=== PATIENT | male | born 1990 ===

== ENCOUNTER 2022-12-10 22:32 | Emergency (ER) | payer OTHER, SELFPAY ==
[2022-12-10] VITALS (14 sets, daily range): BP systolic 123–135; BP diastolic 76–86; PULSE 59–79; RESP 10–27; TEMP 36.6; O2SAT 97–98
--- NOTE | 2022-12-10 22:15 | RT.EKG_ITS ---
APPROVED REPORT Exam: Resting ECG Reason for Exam: chest pain Patient Location: E HR:57 bpm ECG Measurements Heart Rate 57 AXIS WA 152 P 46 QRSd 83 QRS 96 QT 367 T 34 QTc 362 Conclusion Sinus bradycardia...rate< 60 Multiple ventricular premature complexes...V complexes w/ short R-R intervls Physician: no stemi, minimal elevation in AVF, no depressions.
--- NOTE | 2022-12-10 23:04 | ED.GENADUL_ITS ---
Discharge Plan Discharge Details Chief Complaint: Chest Pain ED Provider: Dallas Marcial Home Meds and New Rx's Prescriptions: No Action sertraline [Zoloft] 50 mg Tablet 50 mg PO DAILY olanzapine 10 mg Tablet 10 mg PO DAILY Medical Decision Making Patient presenting to the emergency department via EMS from the correctional facility for potential reaction to unknown substance. Around 10 AM this morning patient took what he thought was Subutex/ Bup that another inmate had given him. He states he has taken this before in the past with no reaction. Then approximately 1 hour or so prior to arrival patient states he was just laying down to go to sleep and as he was just starting to fall asleep he started feeling abnormal, blurred vision, he sat up and started having some increased heart rate, chest pain, shortness of breath with then resulted in some facial tingling and muscle spasm of the left side of the face that was witnessed. He also was stating some agitation delusions and paranoia that people from his past were trying to harm him. 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 He was started on o lanzapine and Zoloft. Patient stated that he did deep breathing while in the ambulance and now has no symptoms. Physical exam is unremarkable for any acute finding. Patient is alert and oriented x3, calm cooperative. Differential diagnosis to include anxiety attack, less likely but still considered is cardiac event due to ingestion of unknown substance, electrolyte or other serum abnormalities secondary to ingestion of substance. Symptoms along with physical exam are not consistent with CVA, seizure. We will plan on checking labs and EKG along with urine and UDS. At this time given patient stating almost full resolution of symptoms I do not feel that any interventions are needed pending results. Please see physician interpretation for full interpretation of EKG but upon my review patient has sinus rhythm, is bradycardic slightly with PVCs. did show slight ST change but does not meet acute criteria for STEMI. We will continue to monitor. Reviewed patient's labs and CBC is unremarkable nondiagnostic, CMP does show slight elevation of glucose of 121 which is nonconcerning, AST of 143 and ALT of 567. Did asked patient if he had any hepatitis history which she stated that he currently had hepatitis C but has not undergone treatment for it yet due to needing to be in custody for short amount of time but was going to be getting treatment for. Patient did have magnesium of 1.6 which we will orally replete. Otherwise initial troponin is negative and nondetectable. Urinalysis is unremarkable and UDS is negative. Given unknown substance and report of chest pain will repeat troponin. With patient reassessment he did state continued improvement of symptoms. I do feel this is reassuring and feel that high likelihood of patient having discharge disposition. Lab Data Lab results reviewed: Yes I reviewed the patient's lab results. HPI General Mode of arrival: EMS . Date/Time Provider Initiated Documentation: 12/10/22 22:32 . Limitations to Documentation: no limitations . Information obtained by: patient and RN notes reviewed . History of Present Illness 31 year old M presents to the emergency department with the chief complaint of Chest pain, inhalation of unknown substance, described as moderate, and is localized to the chest. Patient started experiencing this hour(s) (12) and it has been now resolved. No relieving factors improve symptom(s), Patient notes no other symptoms.. Patient did receive the following treatments prior to arrival, none Related Data Home Medications Medication Instructions Recorded Confirmed olanzapine 10 mg tablet 10 mg PO DAILY 12/10/22 12/10/22 sertraline 50 mg tablet (Zoloft) 50 mg PO DAILY 12/10/22 12/10/22 Allergies Allergy/AdvReac Type Severity Reaction Status Date / Time No Known Allergies Allergy Unverified 12/10/22 23:44 General Stated Complaint: Chest Pain JAMES: 3 Review of Systems Constitutional Constitutional: Denies chills, Denies fever(s) and Denies headache(s) Eyes Eyes: Reports blurry vision ENT Ears, Nose, Mouth, and Throat: Denies headache(s), Denies neck pain and Denies sore throat Cardiovascular Cardiovascular: Reports as per HPI, Reports chest pain, Denies syncope, Denies rapid heart rate, Denies palpitations and Reports dyspnea Respiratory Respiratory: Denies cough and Reports dyspnea Gastrointestinal Gastrointestinal: Denies abdominal pain Musculoskeletal Musculoskeletal: Denies back pain, Reports muscle cramps, Denies neck pain, Denies numbness and Reports tingling (Face during episode) Integumentary/Breasts Skin/Breast: Denies rash and Denies wounds Neurologic Neurologic: Denies syncope, Denies headache(s), Denies numbness, Denies convulsions and Reports tingling (Face during episode) Psychiatric Psychiatric: Reports paranoia Endocrine Endocrine: Denies palpitations PFSH Medical History (Updated 12/10/22 @ 23:52 by Elvia Salguero RN) Hepatitis C Social History Smoking risk assessment performed?: No Do you feel safe at home: No (senior living) Do you feel safe in your relationship?: No Exam Const General: cooperative, healthy appearing, no acute distress and well groomed Orientation: alert, awake and oriented x3 HENMT Head: normal to inspection Ears: hearing grossly normal bilaterally and TM's normal bilaterally Mouth: oral mucosae normal and moist mucous membranes Throat: posterior oropharynx normal Eyes Visual Brooke: normal visual brooke by confrontation Alignment and Position: alignment normal Periorbital: periorbital findings normal Eyelids: eyelids normal Sclera: sclerae normal Cornea: corneas normal Pupils: PERRL EOM: EOM intact bilaterally Neck Neck: normal visual inspection, full ROM, no lymphadenopathy and no meningeal signs Resp Effort & Inspection: normal respiratory effort and able to speak in complete sentences Auscultation: clear to auscultation bilaterally Cardio Rate: regular rate Rhythm: regular rhythm Heart Sounds: S1 normal and S2 normal Neuro General: patient alert, patient awake, patient oriented x3, gait normal, tone normal, moves all extremities, CN's II-XI intact bilaterally and not confused Cognition: normal cognition Speech: speech normal Motor: muscle tone normal throughout, strength 5/5 throughout, no pronator drift, no movement abnormalities noted and no fasciculations Sensory Exam: no sensory deficits noted Coordination: [id number] test normal and Does not sway with eyes open Course Vital Signs Vital signs: Vital Signs Temperature 36.6 C 12/10/22 22:37 Pulse 71 12/10/22 22:37 Respiratory Rate 21 12/10/22 22:37 Blood Pressure 123/84 12/10/22 22:37 Pulse Oximetry 98 12/10/22 22:37 Temperature 36.6 C 12/10/22 22:37 Temperature Source Tympanic 12/10/22 22:37 Pulse 71 12/10/22 22:37 Respiratory Rate 21 12/10/22 22:37 Respiratory Effort Normal 12/10/22 22:46 Respiratory Depth Normal 12/10/22 22:46 Respiratory Pattern Normal 12/10/22 22:46 Blood Pressure 123/84 12/10/22 22:37 Blood Pressure Position Supine 12/10/22 22:37 Pulse Oximetry 98 12/10/22 22:37 Oxygen Delivery Method Room Air 12/10/22 22:37 Oxygen Flow Rate 0 12/10/22 22:37 Pain Level 0 12/10/22 22:46 Sign Out Sign Out Data: Sign Out Comment: Patient pending serial troponin and reassessment with chief working diagnosis of anxiety reaction secondary to ingestion of unknown drug. At time of signout patient has no chest pain and is overall improving in symptoms. Last updated by Dallas Marcial NP at 12/10/22 23:53
[2022-12-10 23:10] LABS: Abs Immature Grans 0.04 10^3/uL (0.0-0.06); Absolute Basophil Count 0.03 10^3/uL (0.0-0.2); Absolute Eosinophil Count 0.12 10^3/uL (0.0-0.7); Absolute Lymphocyte Count 2.79 10^3/uL (1.2-3.4); Absolute Monocyte Count 0.54 10^3/uL (0.1-0.8); Absolute Neutrophil Count 4.44 10^3/uL (1.2-6.7); Basophils % 0.4; Eosinophils % 1.5; HCT 44.8 % (40.0-50.0); Immature Grans % 0.5; Lymphocytes % 35.1; MCH 29.4 pg (27.0-33.0); MCHC 33.5 % (32.0-36.0); MCV 88 fL (80-95); MPV 10.1 fL (8.0-11.0); Monocytes % 6.8; Neutrophils % 55.7; Platelet Count 159 10^3/uL (130-400); RBC 5.11 10^6/uL (4.36-5.78); RDW 13.5 % (11.8-14.1); RDW-SD 43.6 fL; WBC 7.96 10^3/uL (4.4-10.8)
[2022-12-10 23:12] LABS: Bilirubin Negative (Negative); Blood Negative (Negative); Clarity Clear (Clear); Glucose Negative (Negative); Ketones Negative (Negative); Leukocyte Esterase Negative (Negative); Nitrite Negative (Negative); Specific Gravity 1.015 (1.005-1.025); Urobilinogen 0.2 mg/dL (Up to 0.2)
[2022-12-10 23:26] LABS: ALT 567 U/L (16-63); AST 143 U/L (15-37); Albumin 4.1 g/dL (3.4-5.0); Alkaline Phosphatase 89 U/L (46-116); Anion Gap 7.8 mmol/L (3-11); BUN 8 mg/dL (7-18); Bilirubin, Total 0.4 mg/dL (0.2-1.0); CO2 29.2 mmol/L (21.0-32.0); Calcium 9.2 mg/dL (8.5-10.1); Chloride 101 mmol/L (98-107); Estimated GFR 104.48 (mL/min/1.73m2); Glucose 121 mg/dL (74-106); Magnesium 1.6 mg/dL (1.8-2.4); Potassium 3.7 mmol/L (3.5-5.1); Sodium 138 mmol/L (136-145); Total Protein 7.5 g/dL (6.4-8.2); Troponin I < 50 ng/L (<or=60)
[2022-12-10 23:35] LABS: *AMPHETAMINES SCREEN URINE Negative (Negative); *BARBITURATES SCREEN URINE Negative (Negative); *BENZODIAZEPINES SCREEN URINE Negative (Negative); Cannabinoids THC Negative (Negative); Cocaine Screen,Urine Negative (Negative); METHADONE URINE SCREEN Negative (Negative); OPIATES URINE SCREEN Negative (Negative)
[2022-12-10 23:38] LABS: Tricyclic Antidepressants Negative (Negative)
[2022-12-10] MEDS: Magnesium Oxide 400 MG TAB PO (23:57)
[2022-12-11] VITALS (23 sets, daily range): BP systolic 106–124; BP diastolic 61–71; PULSE 52–73; RESP 8–19
--- NOTE | 2022-12-11 01:45 | RT.EKG_ITS ---
APPROVED REPORT Exam: Resting ECG Reason for Exam: chest pain Patient Location: E HR:60 bpm ECG Measurements Heart Rate 60 AXIS MN 156 P 49 QRSd 94 QRS 98 QT 396 T 42 QTc 400 Conclusion Sinus rhythm...normal P axis, V-rate 60- 99 Multiple ventricular premature complexes...V complexes w/ short R-R intervls Aberrant complex...small R-R variation, aberrant QRS Physician: no stemi
[2022-12-11 01:47] LABS: Troponin I < 50 ng/L (<or=60)
--- NOTE | 2022-12-11 02:05 | W.EDPROG ---
Date of service: 12/11/22 Time of Service: 02:05 Medical Decision Making Case was signed out to me by my colleague Dallas Marcial. Please refer to his HPI, physical exam, assessment and plan. At time of signout we are awaiting repeat troponin and repeat EKG. Repeat troponin and repeat EKG have both returned unremarkable. No evidence of STEMI. EKG stable. Repeat troponin normal. Laboratory work-up is otherwise stable. Transaminases are elevated but the patient does have history of hepatitis C which she is awaiting treatment at assisted. Patient otherwise appears clinically well. Vital signs notably stable. Dallas Marcial felt that symptoms may have been mood and anxiety related, and at this time patient's symptoms appear clinically inconsistent with ACS. Patient stable for discharge. Discussed red flags for which to return. I have extensively reviewed the treatment plan and discharge instructions with the patient. I have addressed all patient concerns at this time. The patient was made aware of what symptoms to monitor for that would warrant a return to the emergency department. Discussed the plan with the patient, they demonstrate verbal understanding and agreement with our assessment and plan at this time. The documentation in this chart was dictated using [employer] dictation software. Please excuse any dictation errors. Sign Out Sign Out Data: Sign Out Comment: Patient pending serial troponin and reassessment with chief working diagnosis of anxiety reaction secondary to ingestion of unknown drug. At time of signout patient has no chest pain and is overall improving in symptoms. Last updated by Dallas Marcial NP at 12/10/22 23:53 Discharge Plan Disposition Patient Disposition: Home Condition: Good Discharge Details Chief Complaint: Chest Pain Clinical Impression: Accidental drug ingestion Primary Care Provider: Unknown,Unknown ED Provider: Ralf Richardson Home Meds and New Rx's Prescriptions: No Action sertraline [Zoloft] 50 mg Tablet 50 mg PO DAILY olanzapine 10 mg Tablet 10 mg PO DAILY Discharge Instructions Additional Instructions: At this time your work-up is stable. There is no evidence of heart attack, electrolyte abnormality requiring further correction, or other significant abnormality. Please follow-up closely with your medical practitioner at the assisted for management of your hepatitis. Please avoid any unprescribed substances. If you notice any worsening of your symptoms, or any new symptoms such as vomiting, diarrhea, fever, chills, shortness of breath, chest pain, numbness, weakness, or fainting , please return immediately to the emergency department for reevaluation. Please follow up with your primary care provider as soon as possible for reassessment and reevaluation. As always, it was a pleasure participating in your medical care today.
== END 2022-12-11 02:23 | disposition home or self-care (01) ==
PROVIDERS: Nurse Practitioner Family; Emergency Provider Student in an Organized Health Care Education/Training Program
DX: T50.901A Poisoning by unspecified drugs, medicaments and biological substances, accidental (unintentional), initial encounter (principal); R07.9 Chest pain, unspecified; R06.02 Shortness of breath; R25.2 Cramp and spasm; R20.2 Paresthesia of skin
CPT/HCPCS: 36415; 80053; 80307; 93005; 99285; 81003; 83735; 84484; 85025; 93010; 99283